=== PATIENT | male | born 1995 | race African-American/Black ===

== ENCOUNTER 2018-12-23 08:56 | Emergency (ER) | payer OTHER ==
[~2018-12-23] VITALS: Ht 177.8 cm; Wt 75.0 kg
[2018-12-23] MEDS ORDERED: FAMOTIDINE 20MG TABLET PO ONE (09:45)
[2018-12-23 10:40] VITALS: BP 124/69
== END 2018-12-23 10:57 | disposition home or self-care (01) ==
LOC: ER 08:56
DX: R07.0 Pain in throat (principal)
CPT/HCPCS: 70360; 99283

== ENCOUNTER 2021-02-02 13:39 | Emergency (ER) | payer OTHER ==
[~2021-02-02] VITALS: Ht 177.8 cm; Wt 72.7 kg
[2021-02-02 14:08] VITALS: BP 133/81
== END 2021-02-02 15:03 | disposition home or self-care (01) ==
LOC: ER 13:39
DX: K42.9 Umbilical hernia without obstruction or gangrene (principal)
CPT/HCPCS: 99281

== ENCOUNTER 2021-07-30 13:17 | Emergency (ER) | payer MEDICAID, OTHER ==
[~2021-07-30] VITALS: Ht 177.8 cm; Wt 71.0 kg
[2021-07-30 14:00] VITALS: BP 148/92
[2021-07-30] MEDS ORDERED: DICYCLOMINE 10 MG/5 ML ORAL SYR PO ONE (14:45)
[2021-07-30] MEDS ORDERED: VISCOUS LIDOCAINE 2% 15 ML UDC PO ONE (14:45)
[2021-07-30] MEDS ORDERED: MAGNESIUM/ALUMINUM HYDROXIDE/SIMETHICONE 30ML UDC PO ONE (14:45)
[2021-07-30] MEDS ORDERED: LANS30CA55 MT (16:38)
[2021-07-30] MEDS ORDERED: METR-167 MT (16:38)
[2021-07-30] MEDS ORDERED: CLAR-44 MT (16:38)
[2021-07-30] MEDS ORDERED: AMOX-494 MT (16:38)
== END 2021-07-30 17:14 | disposition home or self-care (01) ==
LOC: ER 13:17
DX: K27.9 Peptic ulcer, site unspecified, unspecified as acute or chronic, without hemorrhage or perforation (principal); B96.81 Helicobacter pylori [H. pylori] as the cause of diseases classified elsewhere; K21.9 Gastro-esophageal reflux disease without esophagitis
CPT/HCPCS: 99283

== ENCOUNTER 2022-02-19 16:44 | Emergency (ER) | payer MEDICAID, OTHER ==
[~2022-02-19] VITALS: Ht 177.8 cm; Wt 71.0 kg
[~2022-02-19 16:44] MED LIST: AMOX-494 MT; CLAR-44 MT; LANS30CA55 MT; METR-167 MT
[2022-02-19 16:52] VITALS: BP 146/79
[2022-02-19] MEDS ORDERED: MAGNESIUM/ALUMINUM HYDROXIDE/SIMETHICONE 30ML UDC PO STA (17:21)
[2022-02-19] MEDS ORDERED: VISCOUS LIDOCAINE 2% 15 ML UDC PO STA (17:21)
[2022-02-19 17:41] LABS: BASOPHILS % 1.1 % (0.0-2.0); HEMATOCRIT. 45.3 % (42.0-52.0); LYMPHOCYTES % 38.4 % (20.0-50.0); MEAN CORPUSCULAR HEMOGLOBIN 28.6 pg (28.0-32.0); MEAN CORPUSCULAR VOLUME 86.4 fL (80.0-94.0); MEAN PLATELET VOLUME 7.9 fl (7.4-10.4); MONOCYTES % 11.7 % (2.0-8.0); NEUTROPHILS % 39.8 % (40.0-76.0); PLATELET 224 x1000/uL (130-400); RED BLOOD CELL COUNT 5.24 mill/uL (4.7-6.1); RED CELL DISTRIBUTION WIDTH 13.6 % (11.6-14.6)
[2022-02-19 17:50] LABS: CHLORIDE 104 mEq/L (98-107)
[2022-02-19] MEDS ORDERED: OMEP20TA15 MT (18:55)
== END 2022-02-19 19:25 | disposition home or self-care (01) ==
LOC: ER 16:44
DX: K29.70 Gastritis, unspecified, without bleeding (principal)
CPT/HCPCS: 36415; 76705; 80053; 85025; 99284

== ENCOUNTER 2023-08-13 06:56 | Emergency (ER) | payer OTHER ==
[~2023-08-13] VITALS: Ht 177.8 cm; Wt 75.0 kg
[~2023-08-13 06:56] MED LIST changes: +OMEP20TA15 MT
[2023-08-13 07:01] VITALS: BP 166/62; PULSE 81; RESP 16; TEMP 98.4; O2SAT 100
[2023-08-13] MEDS ORDERED: FAMOTIDINE 20MG TABLET PO ONE (07:15)
[2023-08-13] MEDS ORDERED: OMEP20TA23 PO (07:20)
== END 2023-08-13 09:06 | disposition home or self-care (01) ==
LOC: ER 06:56
DX: K21.9 Gastro-esophageal reflux disease without esophagitis (principal)
CPT/HCPCS: 99282; Z7610

== ENCOUNTER 2023-11-03 07:19 | Emergency (ER) | payer OTHER ==
[~2023-11-03] VITALS: Ht 172.7 cm; Wt 72.0 kg
[~2023-11-03 07:19] MED LIST changes: +OMEP20TA23 PO
[2023-11-03 07:21] VITALS: O2SAT 100
[2023-11-03] MEDS ORDERED: LEVETIRACETAM 1000MG PREMIX 100 ML IV ONE (07:45)
[2023-11-03] MEDS ORDERED: PHENYTOIN SODIUM 1,000 MG in SODIUM CHLORIDE 0.9% 100 ML IV ONE (07:45)
[2023-11-03 08:11] LABS: BASOPHILS % 0.6 % (0.0-2.0); EOSINOPHILS % 6.1 % (0.0-5.0); HEMATOCRIT. 40.5 % (42.0-52.0); HEMOGLOBIN. 13.1 g/dL (14.0-18.0); LYMPHOCYTES % 40.2 % (20.0-50.0); MEAN CORPUSCULAR HEMOGLOBIN 28.3 pg (28.0-32.0); MEAN CORPUSCULAR HGB CONC 32.4 g/dL (31.0-37.0); MEAN CORPUSCULAR VOLUME 87.2 fL (80.0-94.0); MEAN PLATELET VOLUME 8.2 fl (7.4-10.4); MONOCYTES % 12.7 % (2.0-8.0); NEUTROPHILS % 40.4 % (40.0-76.0); PLATELET 226 x1000/uL (130-400); RED BLOOD CELL COUNT 4.64 mill/uL (4.7-6.1); RED CELL DISTRIBUTION WIDTH 13.7 % (11.6-14.6); WHITE BLOOD COUNT 5.1 x1000/uL (4.5-11.0)
[2023-11-03 08:17] LABS: ALANINE AMINOTRANSFERASE 36 IU/L (10-49); ALBUMIN 4.6 g/dL (3.2-4.8); ASPARTATE AMINOTRANSFERASE 20 IU/L (<34); BILIRUBIN TOTAL 0.3 mg/dL (0.1-1.0); CALCIUM 8.9 mg/dL (8.7-10.4); CARBON DIOXIDE 26 mEq/L (21-32); CHLORIDE 105 mEq/L (98-107); CREATININE 0.8 mg/dL (0.6-1.3); GLUCOSE 76 mg/dL (70-105); PHENYTOIN 7.7 ug/mL (10-20); SODIUM 137 mEq/L (136-145); UREA NITROGEN BLOOD 8 mg/dL (9-23)
[2023-11-03 08:18] LABS: ETHANOL BLOOD < 10 mg/dL (<10)
[2023-11-03] MEDS: PHENYTOIN SODIUM 500 MG in SODIUM CHLORIDE 0.9% 50 ML IV ONE (08:31)
[2023-11-03 08:53] LABS: CLARITY URINE CLEAR (CLEAR); COLOR URINE YELLOW (YELLOW); GLUCOSE URINE NEGATIVE (NEGATIVE); KETONES URINE NEGATIVE (NEGATIVE); LEUKOCYTE ESTERASE URINE NEGATIVE (NEGATIVE); NITRITE URINE NEGATIVE (NEGATIVE); OCCULT BLOOD URINE TRACE (NEGATIVE); PROTEIN URINE NEGATIVE (NEGATIVE); SPECIFIC GRAVITY URINE 1.014 (1.005-1.030); UROBILINOGEN URINE 0.2 E.U./dL (0.2-1.0)
[2023-11-03 09:11] LABS: SQUAMOUS EPITHELIAL CELL URINE FEW /lpf (RARE/1+)
[2023-11-03 09:13] LABS: *AMPHETAMINES SCREEN URINE NEGATIVE (NEGATIVE); *BARBITURATES SCREEN URINE NEGATIVE (NEGATIVE); *BENZODIAZEPINES SCREEN URINE NEGATIVE (NEGATIVE); *COCAINE SCREEN URINE NEGATIVE (NEGATIVE); BACTERIA URINE TRACE; CANNABINOID URINE SCREEN NEGATIVE (NEGATIVE); ECSTASY MDMA SCREEN URINE NEGATIVE (NEGATIVE); METHADONE URINE SCREEN Neg (NEGATIVE); OPIATES URINE SCREEN NEGATIVE (NEGATIVE); PHENCYCLIDINE URINE SCREEN NEGATIVE (NEGATIVE); RBC URINE 0-2 /hpf (0-2)
[2023-11-03 09:17] LABS: WBC URINE 0-2 /hpf (0-2)
[2023-11-03 10:27] VITALS: BP 129/66; PULSE 94; RESP 20; TEMP 98
== END 2023-11-03 10:39 | disposition home or self-care (01) ==
LOC: ER 07:19
DX: G40.901 Epilepsy, unspecified, not intractable, with status epilepticus (principal)
CPT/HCPCS: 80053; 80305; 81003; 80320; 80185; 85025; 36415; 96365; 99284; J1165; Z7610 ×3; J7050; G0480